=== PATIENT | male | born 1980 | race Caucasian/White ===

== ENCOUNTER 2018-05-04 17:00 | Emergency (ER) | payer MEDICAID, OTHER ==
[~2018-05-04] VITALS: Ht 182.9 cm; Wt 69.4 kg
[2018-05-04 17:05] VITALS: BP 113/75
[2018-05-04] MEDS ORDERED: TETRACAINE HCL/PF 0.5% OPTH 4 ML BTL OP ONE (17:20)
[2018-05-04] MEDS ORDERED: TETRACAINE HCL/PF 0.5% OPTH 4 ML BTL ONE (17:23)
[2018-05-04] MEDS ORDERED: FLUORESCEIN OPTH STRIP 0.6 MG ONE (17:25)
[2018-05-04 17:56] VITALS: BP 113/75
== END 2018-05-04 17:57 | disposition home or self-care (01) ==
LOC: MED 17:00
DX: T15.91XA Foreign body on external eye, part unspecified, right eye, initial encounter (principal)
CPT/HCPCS: 65222; 99284